=== PATIENT | female | born 1960 | race Caucasian/White ===

== ENCOUNTER → 2016-08-09 | Outpatient (CLI) | payer OTHER, MEDICAID ==
[2014-02-08 21:41] VITALS: BP 119/66
[2016-08-09 10:46] LABS: BASOPHILS # (AUTO) 0.1 X10^3/uL (0.0-0.1); BASOPHILS % (AUTO) 0.5 % (0.2-1.0); EOSINOPHILS # (AUTO) 0.3 x10^3/uL (0.0-0.2); EOSINOPHILS % (AUTO) 2.2 % (0.9-2.9); HEMOGLOBIN 11.2 g/dL (12.0-16.0); LYMPHOCYTES # (AUTO) 4.6 X10^3/uL (1.3-2.9); LYMPHOCYTES % (AUTO) 31.7 % (21.0-51.0); MEAN CORPUSCULAR HEMOGLOBIN 30.1 pg (27.0-34.0); MEAN CORPUSCULAR HGB CONC 32.9 g/dL (33.0-35.0); MEAN CORPUSCULAR VOLUME 91.3 fL (80.0-100.0); MEAN PLATELET VOLUME 8.6 fL (7.4-11.0); MONOCYTES # (AUTO) 0.8 x10^3/uL (0.3-0.8); MONOCYTES % (AUTO) 5.3 % (0.0-13.0); NEUTROPHILS # (AUTO) 8.8 x10^3/uL (2.2-4.8); NEUTROPHILS % (AUTO) 60.3 % (42.0-75.0); PLATELET COUNT 259 X10^3/uL (150.0-450.0); RED BLOOD COUNT 3.72 X10^6/uL (3.5-5.4); RED CELL DISTRIBUTION WIDTH 15.1 % (11.6-16.5); WHITE BLOOD COUNT 14.5 X10^3/uL (3.6-10.0)
[2016-08-09 11:14] LABS: ALBUMIN 2.9 g/dL (3.4-5.0); CALCIUM 8.4 mg/dL (8.5-10.1); CARBON DIOXIDE 39.5 mmol/L (21-32); COR CA(FOR HYPOALB) 9.3 mg/dL (8.5-10.1); CREATININE 1.43 mg/dL (0.55-1.02); FREE T4 (FREE THYROXINE) 0.94 ng/dL (0.76-1.46); TOTAL PROTEIN 7.3 g/dL (6.4-8.2); TSH (3RD GENERATION) 4.218 uIU/mL (0.358-3.74)
[2016-08-09 11:25] LABS: HEMOGLOBIN A1C 9.8 % (4.5-6.2)
== END ==
LOC: LAB 09:44
PROVIDERS: ATTEND Specialist
DX: N18.3 Chronic kidney disease, stage 3 (moderate) (principal); R53.83 Other fatigue; J43.8 Other emphysema; E11.65 Type 2 diabetes mellitus with hyperglycemia; E78.2 Mixed hyperlipidemia
CPT/HCPCS: 36415; 80053; 80061; 83036; 84439; 84443; 85025

== ENCOUNTER → 2016-10-31 | Outpatient (CLI) | payer OTHER, MEDICAID ==
[2014-02-08 21:41] VITALS: BP 119/66
--- NOTE | 2016-11-01 10:37 | MG ---
HISTORY: SCREENING Comparison: Multiple priors dating back to March 11, 2008 FINDINGS: Bilateral CC and MLO projections of the right and left breast were obtained. Scattered fibroglandul ar tissue is seen to be present without significant interval change. No suspicious architectural di stortion, mass or clustered microcalcifications can be observed to suggest malignancy. No skin thic kening or nipple retraction is appreciated. No pathological lymphadenopathy can be identified. Anup ign-appearing calcifications and nodules are noted within the right and left breast. IMPRESSION: NO RADIOGRAPHIC EVIDENCE OF MALIGNANCY. ACR CATEGORY 2 - benign findings. FOLLOW-UP EXAM 1 YEAR. Diagnostic CAD was utilized and reviewed. * 0 (ZERO) - ASSESSMENT INCOMPLETE; ADDITIONAL IMAGING IS NEEDED. * 1/ (ONE) - NEGATIVE. * 2/II (TWO) - BENIGN FINDINGS. * 3/III (THREE) - PROBABLY BENIGN FINDING; SHORT INTERVAL FOLLOW-UP SUGGESTED. * 4/IV (FOUR) - SUSPICIOUS ABNORMALITY; BIOPSY SHOULD BE CONSIDERED. * 5/V (FIVE) - HIGHLY SUSPICIOUS OF MALIGNANCY; BIOPSY SHOULD BE PERFORMED. A NEGATIVE X-RAY REPORT SHOULD NOT DELAY BIOPSY IF A DOMINANT OR CLINICALLY SUSPICIOUS MASS IS PRESENT; 4 TO 8 PERCENT OF CANCERS ARE NOT IDENTIFIED BY X-RAY. A NEG ATIVE REPORT MAY REINFORCE THE CLINICAL IMPRESSION. ADENOSIS AND DENSE BREASTS MAY OBSCURE AN UNDER LYING NEOPLASM. Reported By:
== END ==
LOC: RAD 10:47
PROVIDERS: ATTEND Specialist
DX: Z12.31 Encounter for screening mammogram for malignant neoplasm of breast (principal)
CPT/HCPCS: 77067

== ENCOUNTER → 2017-04-30 | Outpatient (CLI) | payer OTHER, MEDICAID ==
[2014-02-08 21:41] VITALS: BP 119/66
[2017-04-30 12:59] LABS: BASOPHILS # (AUTO) 0.1 X10^3/uL (0.0-0.1); BASOPHILS % (AUTO) 0.6 % (0.2-1.0); EOSINOPHILS # (AUTO) 0.2 x10^3/uL (0.0-0.2); EOSINOPHILS % (AUTO) 1.6 % (0.9-2.9); HEMATOCRIT 33.4 % (36.0-47.0); HEMOGLOBIN 10.7 g/dL (12.0-16.0); LYMPHOCYTES # (AUTO) 3.3 X10^3/uL (1.3-2.9); LYMPHOCYTES % (AUTO) 21.9 % (21.0-51.0); MEAN CORPUSCULAR HEMOGLOBIN 28.1 pg (27.0-34.0); MEAN CORPUSCULAR VOLUME 87.7 fL (80.0-100.0); MEAN PLATELET VOLUME 8.1 fL (7.4-11.0); MONOCYTES % (AUTO) 6.9 % (0.0-13.0); NEUTROPHILS # (AUTO) 10.3 x10^3/uL (2.2-4.8); PLATELET COUNT 407 X10^3/uL (150.0-450.0); RED BLOOD COUNT 3.81 X10^6/uL (3.5-5.4); RED CELL DISTRIBUTION WIDTH 15.8 % (11.6-16.5)
[2017-04-30 13:22] LABS: ALBUMIN 2.4 g/dL (3.4-5.0); CALCIUM 8.7 mg/dL (8.5-10.1); CHOL/HDL RATIO 3.9 (0.0-5.0); CREATININE 1.51 mg/dL (0.55-1.02); FREE T4 (FREE THYROXINE) 1.11 ng/dL (0.76-1.46); TOTAL PROTEIN 7.3 g/dL (6.4-8.2); TSH (3RD GENERATION) 1.961 uIU/mL (0.358-3.74)
[2017-04-30 13:43] LABS: CARBON DIOXIDE 43.6 mmol/L (21-32)
--- NOTE | 2017-04-30 14:10 | RAD ---
Examination: Left shoulder, three views History: Shoulder pain Findings: There is a healed fracture deformity of the mid 3rd of the clavicle. No acute fracture or d islocation is noted. There is narrowing of the glenohumeral joint with elevation of the humeral head. The subacromial space is narrowed. There is a prominent trabecular pattern in the humeral head with areas of sclerosis and radiolucency. Impression: 1. Evidence of old healed fracture left clavicle. 2. Osteoarthritis of glenohumeral and acromioclavicular joints. Narrowing of subacromial space is sug gestive of chronic rotator cuff disease. 3. Areas of radiolucency in the humeral head may represent osteopenia. However, if there is any histo ry of underlying malignancy, other etiology should be considered. Follow-up as appropriate. Reported By:
[2017-04-30 15:42] LABS: ABG BASE EXCESS 23.6 mmol/L (-2.0-2.0)
[2017-04-30 15:43] LABS: ABG ALLEN TEST POS; ABG HCO3 52.3 mmol/L (22-26)
== END | disposition home or self-care (01) ==
LOC: LAB 12:28
PROVIDERS: ATTEND Specialist
DX: I12.9 Hypertensive chronic kidney disease with stage 1 through stage 4 chronic kidney disease, or unspecified chronic kidney disease (principal); N18.3 Chronic kidney disease, stage 3 (moderate); R06.02 Shortness of breath; J44.9 Chronic obstructive pulmonary disease, unspecified; E11.65 Type 2 diabetes mellitus with hyperglycemia; R53.83 Other fatigue; J99 Respiratory disorders in diseases classified elsewhere; E78.2 Mixed hyperlipidemia; M25.512 Pain in left shoulder; M19.012 Primary osteoarthritis, left shoulder
CPT/HCPCS: 36415; 36600; 73030; 80053; 80061; 82803; 84439; 84443; 85025